=== PATIENT | female | born 1995 | race Caucasian/White ===

== ENCOUNTER → 2016-12-25 | Outpatient (CLI) | payer OTHER ==
[2016-12-25 20:14] LABS: BASO % 0.2 % (0.0-1.0); EOS # 0.2 K/mm3 (0.0-0.50); EOS % 3.5 % (0.0-3.0); LARGE UNSTAINED CELL # 0.2 K/mm3 (0.0-0.4); LARGE UNSTAINED CELL % 2.6 % (0.0-4.0); LYMPH # 1.8 K/mm3 (1.5-6.5); MEAN CORPUSCULAR HEMOGLOBIN 31.1 pg (27.0-33.0); MEAN CORPUSCULAR HGB CONC 33.5 g/dl (32.0-36.5); MEAN CORPUSCULAR VOLUME 92.8 fl (80.0-96.0); MONO # 0.5 K/mm3 (0.0-0.8); MONO % 6.7 % (0.0-5.0); NEUTROPHILS # 4.2 K/mm3 (1.8-7.7); PLATELET COUNT, AUTOMATED 263 k/mm3 (150-450); WHITE BLOOD COUNT 6.9 K/mm3 (4.0-10.0)
[2016-12-26 14:05] LABS: HIV SCRN NEGATIVE (NEGATIVE); HIV SCRN1 NEGATIVE (NEGATIVE)
[2016-12-26 14:06] LABS: CONTROL LINE INT CTR LINE PRESENT
[2016-12-27 09:48] LABS: HBsAg Prenatal NEGATIVE (NEGATIVE)
== END ==
LOC: M ADAMS 15:32
PROVIDERS: ATTEND Advanced Practice Midwife
DX: Z34.81 Encounter for supervision of other normal pregnancy, first trimester (principal)

== ENCOUNTER 2016-12-28 15:19 | Emergency (ER) | payer OTHER ==
[~2016-12-28] VITALS: Ht 162.6 cm; Wt 59.0 kg
[2016-12-28] MEDS ORDERED: MIRA33504 PO (15:26)
[2016-12-28] MEDS ORDERED: CELE20TA PO (15:26)
[2016-12-28 17:55] VITALS: BP 125/64
== END 2016-12-28 18:19 | disposition home or self-care (01) ==
LOC: M ED 18:05
DX: N93.8 Other specified abnormal uterine and vaginal bleeding (principal); R10.2 Pelvic and perineal pain; K60.2 Anal fissure, unspecified; F32.9 Major depressive disorder, single episode, unspecified; F41.9 Anxiety disorder, unspecified; Z79.899 Other long term (current) drug therapy

== ENCOUNTER → 2017-01-10 | Outpatient (CLI) | payer OTHER ==
[~2017-01-10] MED LIST: CELE20TA PO; MIRA33504 PO
== END ==
LOC: M SMT 11:26
PROVIDERS: ATTEND Advanced Practice Midwife
DX: O26.851 Spotting complicating pregnancy, first trimester (principal)

== ENCOUNTER → 2017-01-12 | Outpatient (REF) | payer OTHER | LOC: M LAB REF 12:03 | PROVIDERS: ATTEND Advanced Practice Midwife | DX: O26.851 Spotting complicating pregnancy, first trimester (principal); Z3A.00 Weeks of gestation of pregnancy not specified ==

== ENCOUNTER → 2017-03-25 | Outpatient (REF) | payer OTHER | LOC: M LAB REF 15:07 | PROVIDERS: ATTEND Physician Assistant | DX: J02.9 Acute pharyngitis, unspecified (principal) ==

== ENCOUNTER → 2017-06-13 | Outpatient (REF) | payer OTHER ==
[2017-06-13 20:37] LABS: BASO % 0.2 % (0.0-1.0); EOS # 0.1 K/mm3 (0.0-0.50); EOS % 1.5 % (0.0-3.0); LARGE UNSTAINED CELL # 0.1 K/mm3 (0.0-0.4); LARGE UNSTAINED CELL % 1.3 % (0.0-4.0); LYMPH # 1.5 K/mm3 (1.5-6.5); LYMPH % 19.6 % (24.0-44.0); MEAN CORPUSCULAR HEMOGLOBIN 31.3 pg (27.0-33.0); MEAN CORPUSCULAR HGB CONC 33.3 g/dl (32.0-36.5); MEAN CORPUSCULAR VOLUME 93.9 fl (80.0-96.0); MONO # 0.5 K/mm3 (0.0-0.8); MONO % 6.6 % (0.0-5.0); NEUTROPHILS # 5.2 K/mm3 (1.8-7.7); NEUTROPHILS % 70.8 % (36.0-66.0); PLATELET COUNT, AUTOMATED 276 k/mm3 (150-450); RED CELL DISTRIBUTION WIDTH 12.1 % (11.5-14.5); WHITE BLOOD COUNT 7.3 K/mm3 (4.0-10.0)
[2017-06-15 11:06] LABS: HBsAg Prenatal NEGATIVE (NEGATIVE)
[2017-06-18 14:11] LABS: IMMUNOGLOBULIN E, TOTAL 128 IU/mL (0-100)
== END ==
LOC: M LAB REF 08:59
PROVIDERS: ATTEND Obstetrics & Gynecology
DX: Z34.81 Encounter for supervision of other normal pregnancy, first trimester (principal)

== ENCOUNTER → 2017-09-06 | Outpatient (CLI) | payer OTHER ==
--- NOTE | 2017-09-06 17:01 | REP ---
Obstetric sonography: History: Supervision of for anatomy. Findings: Scanning through the gravid uterus demonstrates a viable single intrauterine gestation in a breech lie. motion is observed and heart rate is recorded at 168 beats per minute. An anterior grade zero placenta is seen without evidence of previa or abruption. Amniotic fluid is subjectively normal. Closed cervical length is 3.5 cm measured transabdominally . No extrauterine abnormality observed. There has been appropriate interval growth. There are small bilateral choroid plexus cyst seen. No other anomaly is seen. Four-chamber heart and left ventricular outflow tract views are less than optimally achieved due to position. The following additional anatomic structures are identified and felt to be sonographically unremarkable: cranium, cavum, cerebellum posterior fossa, face and profile, lungs, right ventricular outflow tract view, diaphragm, left-sided stomach, abdominal wall cord insertion, three-vessel umbilical cord, kidneys and bladder, spine, upper and lower extremities. Biometry chart: BPD 4.2 cm = 18 weeks 6 days Head circumference 15.3 cm = 18 weeks 2 days Abdominal circumference 13.2 cm = 18 weeks 5 days Femur length 3.1 cm = 19 weeks 4 days Humeral length 2.7 cm = 18 weeks 4 days Cerebellar diameter 1.9 cm = 18 weeks 4 days HC/AC ratio normal 1.16, cephalic index normal 0.78, estimated weight 271 grams 0 pounds 9 ounces 52nd percentile for 18 weeks 6 days. Impression: Viable single intrauterine gestation at 18 weeks 5 days by today's composite sonographic criteria. HEATHER by today's sonography February 02, 2018. Four-chamber heart and left ventricular outflow tract views less than optimally achieved. Small bilateral choroid plexus cysts noted. Signed by Ronald Bowie MD 09/06/2017 05:29 P
== END ==
LOC: M RAD 13:15
PROVIDERS: ATTEND Obstetrics & Gynecology
DX: Z36.2 Encounter for other antenatal screening follow-up (principal)

== ENCOUNTER → 2017-09-25 | Outpatient (CLI) | payer OTHER ==
--- NOTE | 2017-09-25 16:29 | REP ---
Clinical: Anatomical evaluation. Comparison: 09/06/2017 . Findings: Examination demonstrates a single live intrauterine in cephalic presentation. motion is identified by technologist. Placenta is noted anteriorly and grade zero without evidence for placenta previa or abruption. Amniotic fluid volume is normal. Cervix measures 3.9 cm in length and appears closed. No evidence for nuchal cord. Gestational age by LMP 21 weeks 4 days with HEATHER 02/01/2018 . Gestational age by current measurements 21 weeks 1 day with HEATHER 02/04/2018 . FHR equals 133 beats per minute. Estimated weight 408 grams ( 34th percentile). Anatomical assessment demonstrates normal structures including cranium, choroid plexus, cavum, cerebellum/posterior fossa, facial features, lungs, four-chamber heart/ventricular outflow tracts, diaphragm, stomach, cord insertion/three-vessel cord, kidneys/bladder, spine, and extremities. Impression: Single live intrauterine in cephalic presentation demonstrating appropriate interval growth. In conjunction with prior examination anatomical assessment is complete and normal. Signed by Gio Jimenez MD 09/25/2017 04:21 P
== END ==
LOC: M RAD 14:19
PROVIDERS: ATTEND Obstetrics & Gynecology
DX: Z34.80 Encounter for supervision of other normal pregnancy, unspecified trimester (principal)

== ENCOUNTER → 2017-11-21 | Outpatient (CLI) | payer OTHER ==
[2017-11-21 14:38] LABS: BASO % 0.3 % (0.0-1.0); EOS # 0.1 10^3/uL (0.0-0.50); HEMATOCRIT 33.9 % (36.0-47.0); HEMOGLOBIN 11.1 g/dl (12.0-16.0); IMMATURE GRANULOCYTE # 0.1 10^3/uL (0-0); IMMATURE GRANULOCYTE % 0.5 % (0-0); LYMPH # 1.4 10^3/uL (1.5-6.5); LYMPH % 11.9 % (24.0-44.0); MEAN CORPUSCULAR HGB CONC 32.7 g/dl (32.0-36.5); MEAN CORPUSCULAR VOLUME 94.7 fl (80.0-96.0); MONO # 0.8 10^3/uL (0.0-0.8); MONO % 6.6 % (0.0-5.0); NEUTROPHILS # 9.4 10^3/uL (1.8-7.7); NEUTROPHILS % 79.7 % (36.0-66.0); PLATELET COUNT, AUTOMATED 274 10^3/uL (150-450); RED BLOOD COUNT 3.58 10^6/uL (4.00-5.40); RED CELL DISTRIBUTION WIDTH 12.5 % (11.5-14.5); WHITE BLOOD COUNT 11.7 10^3/uL (4.0-10.0)
[2017-11-21 14:40] LABS: GLUCOSE CHALLENGE TEST 1 HOUR 97 MG/DL (LESS THAN 140)
== END ==
LOC: M SMT 08:57
DX: Z34.83 Encounter for supervision of other normal pregnancy, third trimester (principal)
CPT/HCPCS: 82950

== ENCOUNTER 2017-12-10 23:00 | Outpatient (CLI) | payer OTHER | END 2017-12-10 23:50 | disposition home or self-care (01) | LOC: M LDO 23:00 | DX: O36.8130 Decreased fetal movements, third trimester, not applicable or unspecified (principal); Z3A.32 32 weeks gestation of pregnancy ==

== ENCOUNTER → 2018-01-02 | Outpatient (REF) | payer OTHER | LOC: M LAB REF 17:11 | DX: Z34.83 Encounter for supervision of other normal pregnancy, third trimester (principal) ==

== ENCOUNTER 2018-01-04 11:08 | Outpatient (CLI) | payer OTHER | END 2018-01-04 13:55 | disposition home or self-care (01) | LOC: M LDO 11:08 | DX: O47.03 False labor before 37 completed weeks of gestation, third trimester (principal); Z3A.36 36 weeks gestation of pregnancy ==

== ENCOUNTER 2018-01-05 20:20 | Outpatient (CLI) | payer OTHER | END 2018-01-05 21:10 | disposition home or self-care (01) | LOC: M LDO 20:20 | DX: O47.03 False labor before 37 completed weeks of gestation, third trimester (principal); Z3A.36 36 weeks gestation of pregnancy; M54.5 Low back pain; O26.893 Other specified pregnancy related conditions, third trimester ==

== ENCOUNTER 2018-01-20 12:00 | Inpatient (IN) | payer OTHER ==
[2018-01-20 13:24] LABS: HEMATOCRIT 32.9 % (36.0-47.0); HEMOGLOBIN 10.9 g/dl (12.0-16.0); MEAN CORPUSCULAR HEMOGLOBIN 30.4 pg (27.0-33.0); MEAN CORPUSCULAR HGB CONC 33.1 g/dl (32.0-36.5); MEAN CORPUSCULAR VOLUME 91.6 fl (80.0-96.0); PLATELET COUNT, AUTOMATED 259 10^3/uL (150-450); RED BLOOD COUNT 3.59 10^6/uL (4.00-5.40); RED CELL DISTRIBUTION WIDTH 13.2 % (11.5-14.5); WHITE BLOOD COUNT 11.1 10^3/uL (4.0-10.0)
[2018-01-20 13:41] LABS: ALT/SGPT 12 U/L (12-78); AST/SGOT 16 U/L (7-37); BILIRUBIN,TOTAL 0.3 MG/DL (0.2-1.0); CREATININE FOR GFR 0.49 MG/DL (0.55-1.30); GLOMERULAR FILTRATION RATE > 60.0 (>60); LDH LACTATE DEHYDROGENASE 183 U/L (84-246); URIC ACID 4.3 MG/DL (2.6-6.0)
[2018-01-20] MEDS: miSOPROStol 50 MCG 1/2 TAB (S0191) PO (15:45)
[2018-01-20] MEDS ORDERED: miSOPROStol 50 MCG 1/2 TAB (S0191) PO (19:00)
[2018-01-20] MEDS: PROMETHAZINE INJ 25 MG/ML VIAL (J2550) IV (19:51)
[2018-01-20] MEDS: BUTORPHANOL 2 MG/ML INJ (J0595) IV (19:51)
[2018-01-20] MEDS: LR 1,000 ML IV (20:20)
[2018-01-20] MEDS: OXYTOCIN DRIP 30 UNITS in APPROPRIATE DILUENT 1 EA IV (20:20)
[2018-01-20] MEDS: LACTATED RINGER'S 1000 ML IV (21:32)
[2018-01-20] MEDS ORDERED: FENTANYL 2MCG/ML ROPIVACAINE 0.2% IN 0.9% NACL 200ML IVBAG As Ordered (21:48)
[2018-01-20] MEDS ORDERED: EPIDURAL COMMENT XX (22:55)
[2018-01-20] MEDS ORDERED: EPIDURAL/PCA KEYS XX (22:55)
[2018-01-20] MEDS ORDERED: FENTANYL/ROPIVACAINE/NACL BAG 200 ML EPIDURAL (22:55)
[2018-01-20] MEDS ORDERED: ONDANSETRON 4MG/2ML VIAL (J2405) IV (22:55)
[2018-01-20] MEDS ORDERED: diphenhydrAMINE INJ 50MG/ML VIAL (J1200) IV (22:55)
[2018-01-20] MEDS ORDERED: NALOXONE INJ 0.4 MG/1 ML VIAL (J2310) IV (22:55)
[2018-01-20] MEDS ORDERED: LACTATED RINGER'S 1000 ML IV (22:55)
[2018-01-20] MEDS ORDERED: REFRIGERATOR IV KEYS XX (22:55)
[2018-01-21] MEDS: ePHEDrine SULFATE 25 MG/5 ML(5MG/ML) SYRINGE IV (00:16)
[2018-01-21] MEDS: LR 1,000 ML IV (04:30)
[2018-01-21] MEDS: ACETAMINOPHEN 500 MG TAB PO ×3 (04:30→22:59)
[2018-01-21] MEDS ORDERED: BICITRA 30ML SOLN UDC As Ordered (06:37)
[2018-01-21] MEDS ORDERED: ceFAZolin 2 GM/D5W 50 ML IV BAG (J0690 PER 500MG) As Ordered (06:37)
[2018-01-21] MEDS ORDERED: METHYLERGONOVINE MALEATE 0.2 MG TAB PO (07:30)
[2018-01-21 08:08] LABS: CORD GAS ABE V -8.8; CORD GAS HCO3 V 19.8 MEQ/L; CORD GAS O2 SAT V 44.2 %; CORD GAS PCO2 V 52.3 mmHg; CORD GAS PH V 7.196 UNITS; CORD GAS PO2 V 23.7 mmHg; CORD GAS SBC V 16.4 MEQ/L; CORD GAS TCO2 V 21.4 MEQ/L
[2018-01-21 08:10] LABS: CORD GAS ABE A -8.7; CORD GAS HCO3 A 20.3 MEQ/L; CORD GAS O2 SAT A 17.4 %; CORD GAS PCO2 A 55.2 mmHg; CORD GAS PH A 7.183 UNITS; CORD GAS PO2 A 12.8 mmHg; CORD GAS SBC A 15.8 MEQ/L
[2018-01-21] MEDS: BICITRA 30ML SOLN UDC PO (08:46)
[2018-01-21] MEDS: OXYTOCIN DRIP 30 UNITS in APPROPRIATE DILUENT 1 EA IV (08:47)
[2018-01-21] MEDS: PRENATAL VITAMINS CHEWABLE TABLET PO (09:00)
[2018-01-21] MEDS: IBUPROFEN 800 MG TAB PO ×2 (14:09→22:59)
[2018-01-21] MEDS: DIBUCAINE 1% OINTMENT 30GM TOP (22:50)
[2018-01-21] MEDS: RHOGAM 300 MCG (1500 IU) INJ (J2790) IM (22:51)
[2018-01-21] MEDS: MEASLES,MUMPS,RUBELLA VACCINE INJ (MMR-II) (90707) SC (22:51)
[2018-01-22] MEDS: PRENATAL VITAMINS CHEWABLE TABLET PO (08:35)
[2018-01-22] MEDS: IBUPROFEN 800 MG TAB PO ×2 (08:36→19:34)
[2018-01-22] MEDS: DOCUSATE SODIUM 100 MG CAP PO (08:36)
[2018-01-22] MEDS: ACETAMINOPHEN 500 MG TAB PO (15:32)
[2018-01-23] MEDS: IBUPROFEN 800 MG TAB PO (04:42)
[2018-01-23] MEDS: ACETAMINOPHEN 500 MG TAB PO (04:42)
[2018-01-23] MEDS: PRENATAL VITAMINS CHEWABLE TABLET PO (09:51)
== END 2018-01-23 10:30 | disposition home or self-care (01) | DRG 560 ==
LOC: M LDO 12:00 → M LDI 12:40 → M OBS 01-21 09:38
PROC: 10E0XZZ Delivery of Products of Conception, External Approach (ICD-10-PCS; principal; 2018-01-21)
PROC: 0HQ9XZZ Repair Perineum Skin, External Approach (ICD-10-PCS; 2018-01-21)
DX: O76 Abnormality in fetal heart rate and rhythm complicating labor and delivery (principal); O70.0 First degree perineal laceration during delivery; Z37.0 Single live birth; Z3A.38 38 weeks gestation of pregnancy; Z91.040 Latex allergy status

== ENCOUNTER → 2019-01-23 | Outpatient (REF) | payer MEDICAID ==
[~2019-01-23] MED LIST changes: +IBUP-1114 PO; +MAPA500T2 PO; +PRENTAB9 PO; +TUMS500C PO
[2019-01-29 14:25] LABS: HPV HYBRID CAPTURE II Positive (Negative)
== END ==
LOC: M LAB REF 13:16
PROVIDERS: ATTEND Advanced Practice Midwife
DX: Z12.4 Encounter for screening for malignant neoplasm of cervix (principal)

== ENCOUNTER → 2019-03-27 | Outpatient (REF) | payer OTHER | LOC: M LAB REF 16:59 | PROVIDERS: ATTEND Specialist | DX: R87.610 Atypical squamous cells of undetermined significance on cytologic smear of cervix (ASC-US) (principal) ==

== ENCOUNTER 2019-07-10 16:54 | Emergency (ER) | payer OTHER ==
[~2019-07-10] VITALS: Ht 160 cm; Wt 88.6 kg
[2019-07-10 17:27] LABS: BASO % 0.2 % (0.0-1.0); EOS # 0.5 10^3/uL (0.0-0.5); EOS % 4.1 % (0.0-3.0); HEMATOCRIT 38.7 % (36.0-47.0); HEMOGLOBIN 13.1 g/dl (12.0-15.5); LYMPH # 1.2 10^3/uL (1.5-5.0); LYMPH % 10.5 % (24.0-44.0); MEAN CORPUSCULAR HEMOGLOBIN 31.3 pg (27.0-33.0); MEAN CORPUSCULAR HGB CONC 33.9 g/dl (32.0-36.5); MEAN CORPUSCULAR VOLUME 92.6 fl (80.0-96.0); MONO # 0.7 10^3/uL (0.0-0.8); MONO % 6.7 % (0.0-5.0); NEUTROPHILS # 8.7 10^3/uL (1.5-8.5); NEUTROPHILS % 78.2 % (36.0-66.0); PLATELET COUNT, AUTOMATED 264 10^3/uL (150-450); RED BLOOD COUNT 4.18 10^6/uL (4.00-5.40); WHITE BLOOD COUNT 11.1 10^3/uL (4.0-10.0)
[2019-07-10 17:51] LABS: BLOOD UREA NITROGEN 9 MG/DL (7-18); CALCIUM LEVEL 9.2 MG/DL (8.5-10.1); CARBON DIOXIDE LEVEL 24 MEQ/L (21-32); CHLORIDE LEVEL 105 MEQ/L (98-107); CREATININE FOR GFR 0.56 MG/DL (0.55-1.30); GLOMERULAR FILTRATION RATE > 60.0 (>60); GLUCOSE, FASTING 91 MG/DL (70-100); SODIUM LEVEL 137 MEQ/L (136-145)
[2019-07-10] MEDS ORDERED: ACETAMINOPHEN 325 MG TAB PO ONE (19:15)
[2019-07-10] MEDS ORDERED: ONDANSETRON 4 MG ORAL DISINTEGRATING TAB (Q0162 PER 1MG) PO ONE (19:15)
--- NOTE | 2019-07-10 22:09 | REPVR ---
EXAM: US First Trimester, Transabdominal EXAM DATE/TIME: 07/10/2019 9:04 PM CLINICAL HISTORY: 23 years old, female; complicated by abdominal or pelvic pain; Lower; First trimester; Gestational age or lmp: 8 weeks 0 days; ; Additional info: Vag bleeding, cramping, 8wks by dates TECHNIQUE: Imaging protocol: Real-time transabdominal obstetrical ultrasound of the maternal pelvis and a first trimester , less than 14 weeks 0 days, with image documentation. COMPARISON: US OBS FOLL UP OR REPEAT EACH GES 09/25/2017 2:31 PM FINDINGS: There is a single intrauterine gestation. The embryonic heart rate was measured at 125 beats per minute. The crown-rump length is 5 cm, corresponding to an estimated gestational age of 6 weeks, 2 days. The estimated gestational age based on the last menstrual period (05/15/2019) is 8 weeks, 0 days. The sonographic estimated date of delivery is 03/02/2020. Both maternal ovaries are identified and demonstrate blood flow on Doppler interrogation. The right ovary measures 3.6 x 2.1 x 2 cm and the left ovary measures 3.5 x 2.1 x 2.8 cm. There is a 2.3 x 1.7 x 1.9 cm complex cystic lesion in the left ovary, compatible with a corpus luteum. There is no adnexal mass. No free fluid is seen in the pelvis. IMPRESSION: Single viable intrauterine gestation with an estimated gestational age of 6 weeks, 2 days. Recommend continued clinical and ultrasound surveillance, as clinically indicated. Electronically signed by: Bear Anders On 07/10/2019 22:09:13 PM
[2019-07-10] MEDS ORDERED: ONDA4TAB6 PO (22:17)
[2019-07-10 22:23] VITALS: BP 118/65
== END 2019-07-10 22:24 | disposition home or self-care (01) ==
LOC: M ED 16:54
DX: O20.8 Other hemorrhage in early pregnancy (principal); O26.891 Other specified pregnancy related conditions, first trimester; Z3A.01 Less than 8 weeks gestation of pregnancy; O99.511 Diseases of the respiratory system complicating pregnancy, first trimester; Z91.040 Latex allergy status
CPT/HCPCS: 76801; 80048; 81001; 84702; 85025; 86850; 86900; 86901; 93976; 99283; Q0162

== ENCOUNTER 2019-07-11 10:49 | Emergency (ER) | payer OTHER ==
[~2019-07-11] VITALS: Ht 160 cm; Wt 88.5 kg
[~2019-07-11 10:49] MED LIST changes: +ONDA4TAB6 PO
[2019-07-11 11:37] LABS: BASO % 0.4 % (0.0-1.0); EOS # 0.4 10^3/uL (0.0-0.5); EOS % 5.3 % (0.0-3.0); HEMATOCRIT 37.4 % (36.0-47.0); HEMOGLOBIN 12.5 g/dl (12.0-15.5); LYMPH # 1.1 10^3/uL (1.5-5.0); LYMPH % 15.8 % (24.0-44.0); MEAN CORPUSCULAR HEMOGLOBIN 30.3 pg (27.0-33.0); MEAN CORPUSCULAR HGB CONC 33.4 g/dl (32.0-36.5); MEAN CORPUSCULAR VOLUME 90.8 fl (80.0-96.0); MONO # 0.5 10^3/uL (0.0-0.8); MONO % 7.3 % (0.0-5.0); NEUTROPHILS # 5.1 10^3/uL (1.5-8.5); NEUTROPHILS % 71.1 % (36.0-66.0); PLATELET COUNT, AUTOMATED 263 10^3/uL (150-450); RED BLOOD COUNT 4.12 10^6/uL (4.00-5.40); WHITE BLOOD COUNT 7.2 10^3/uL (4.0-10.0)
[2019-07-11 12:38] LABS: BLOOD UREA NITROGEN 8 MG/DL (7-18); CALCIUM LEVEL 9.1 MG/DL (8.5-10.1); CARBON DIOXIDE LEVEL 23 MEQ/L (21-32); CHLORIDE LEVEL 106 MEQ/L (98-107); GLOMERULAR FILTRATION RATE > 60.0 (>60); GLUCOSE, FASTING 103 MG/DL (70-100); HCG, SERUM QUANTITATIVE 13997 MIU/ML; POTASSIUM SERUM 3.5 MEQ/L (3.5-5.1); SODIUM LEVEL 138 MEQ/L (136-145)
[2019-07-11] MEDS ORDERED: ACETAMINOPHEN TAB 650MG DOSE (2X325MG) PO ONE (13:00)
--- NOTE | 2019-07-11 14:04 | REP ---
FIRST TRIMESTER ULTRASOUND: Real-time sonographic evaluation of the gravid uterus is performed utilizing transabdominal technique. There is a single intrauterine gestation with an estimated gestational age 6 weeks 2 days based on a crown-rump length of 6 mm, EDC 03/03/2020. heart rate is 122 beats per minute. There is a subchorionic hemorrhage visualized, measuring 25 x 8 x 19 mm. Cystic structure of the left ovary probably represents a corpus luteum 1.5 cm in diameter. Electronically Signed by Gadiel Booker MD 07/11/2019 03:18 P
[2019-07-11 14:20] VITALS: BP 119/58
== END 2019-07-11 15:45 | disposition home or self-care (01) ==
LOC: M ED 10:49
DX: O20.0 Threatened abortion (principal); O26.891 Other specified pregnancy related conditions, first trimester; O34.81 Maternal care for other abnormalities of pelvic organs, first trimester; O20.8 Other hemorrhage in early pregnancy; O99.511 Diseases of the respiratory system complicating pregnancy, first trimester; O99.341 Other mental disorders complicating pregnancy, first trimester; Z3A.01 Less than 8 weeks gestation of pregnancy; Z79.899 Other long term (current) drug therapy; Z91.040 Latex allergy status

== ENCOUNTER → 2020-11-15 | Outpatient (CLI) | payer OTHER | LOC: M LABSMTC 12:45 | PROVIDERS: ATTEND Family Medicine | DX: Z20.822 Contact with and (suspected) exposure to COVID-19 (principal) ==

== ENCOUNTER → 2020-12-07 | Outpatient (REF) | payer OTHER ==
[2020-12-07 16:38] LABS: BASO % 0.4 % (0.0-1.0); EOS # 0.1 10^3/uL (0.0-0.5); EOS % 1.7 % (0.0-3.0); HEMATOCRIT 42.3 % (36.0-47.0); HEMOGLOBIN 13.7 g/dl (12.0-15.5); LYMPH # 2.3 10^3/uL (1.5-5.0); LYMPH % 30.3 % (24.0-44.0); MEAN CORPUSCULAR HEMOGLOBIN 30.3 pg (27.0-33.0); MEAN CORPUSCULAR HGB CONC 32.4 g/dl (32.0-36.5); MEAN CORPUSCULAR VOLUME 93.6 fl (80.0-96.0); MONO # 0.7 10^3/uL (0.0-0.8); MONO % 8.7 % (0.0-5.0); NEUTROPHILS # 4.5 10^3/uL (1.5-8.5); NEUTROPHILS % 58.6 % (36.0-66.0); PLATELET COUNT, AUTOMATED 324 10^3/uL (150-450); RED BLOOD COUNT 4.52 10^6/uL (4.00-5.40); WHITE BLOOD COUNT 7.6 10^3/uL (4.0-10.0)
[2020-12-07 17:06] LABS: ALT/SGPT 21 U/L (12-78); BILIRUBIN,TOTAL 0.3 MG/DL (0.2-1.0); BLOOD UREA NITROGEN 12 MG/DL (7-18); CARBON DIOXIDE LEVEL 30 MEQ/L (21-32); CHLORIDE LEVEL 106 MEQ/L (98-107); FREE T4 0.88 NG/DL (0.76-1.46); GLOMERULAR FILTRATION RATE > 60.0 (>60); GLUCOSE, FASTING 83 MG/DL (70-100); POTASSIUM SERUM 4.1 MEQ/L (3.5-5.1); SODIUM LEVEL 141 MEQ/L (136-145); THYROID STIMULATING HORMONE 0.958 uIU/ML (0.358-3.740); TOTAL PROTEIN 7.7 GM/DL (6.4-8.2); VITAMIN B12 LEVEL 493 PG/ML
== END ==
LOC: M SFHCADAM 13:50
PROVIDERS: ATTEND Physician Assistant
DX: G43.019 Migraine without aura, intractable, without status migrainosus (principal)

== ENCOUNTER → 2021-01-21 | Outpatient (CLI) | payer OTHER ==
--- NOTE | 2021-01-21 16:15 | REPVR ---
PROCEDURE INFORMATION: Exam: MR Head Without and With Contrast Exam date and time: 01/21/2021 2:48 PM Age: 25 years old Clinical indication: Pain; Headache; Without aura; Does respond to medication; With migrainosus (>72 hrs & severe); Patient HX: Vertigo, migraine TECHNIQUE: Imaging protocol: MR of the head without and with intravenous contrast. Contrast material: PROHANCE; Contrast volume: 18 ml; Contrast route: INTRAVENOUS (IV); COMPARISON: CT Head without contrast 02/01/2016 7:10 PM FINDINGS: Brain: No acute infarct identified on the diffusion-weighted imaging. No evidence of recent parenchymal hemorrhage. There is a focus of left frontal lobe parenchymal blooming probably related to an underlying cavernous malformation (approximate 7 mm area of correlative T2 signal heterogeneity with some stippled enhancement on the postcontrast imaging and small adjacent developmental venous anomaly, image 3 series 10). No evidence of perifocal edema in this region. No significant white matter disease. Cerebral ventricles: Normal. No ventriculomegaly. Bones/joints: Unremarkable. Paranasal sinuses: Trace ethmoid mucosal thickening. Mastoid air cells: Normal as visualized. No mastoid effusion. Orbital cavity: Unremarkable. Soft tissues: Unremarkable. IMPRESSION: 1. No acute intracranial abnormality. 2. 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 Electronically signed by: Ami Evans On 01/21/2021 16:15:36 PM
== END ==
LOC: M PLARAD 14:10
PROVIDERS: ATTEND Physician Assistant
DX: G43.019 Migraine without aura, intractable, without status migrainosus (principal); R42 Dizziness and giddiness

== ENCOUNTER → 2021-02-09 | Outpatient (CLI) | payer OTHER ==
--- NOTE | 2021-02-09 08:49 | REP ---
INDICATION: IMPINGEMENT SYNDROME OF RIGHT SHOULDER COMPARISON: None. TECHNIQUE: Internal rotation, external rotation, and Y view. FINDINGS: No acute fracture or dislocation. The acromioclavicular and glenohumeral joints are intact. No periarticular calcifications or degenerative changes are appreciated. Sub acromial space is normal. Surrounding soft tissues are unremarkable. IMPRESSION: Normal age-appropriate right shoulder radiographs. <Electronically signed by Gio Jimenez > 02/09/21 [id number]
== END ==
LOC: M ADAMS 08:28
PROVIDERS: ATTEND Physician Assistant
DX: M75.41 Impingement syndrome of right shoulder (principal)

== ENCOUNTER → 2021-06-28 | Outpatient (REF) | payer OTHER ==
[2021-06-28 19:46] LABS: BASO % 0.3 % (0.0-1.0); EOS # 0.2 10^3/uL (0.0-0.5); EOS % 2.9 % (0.0-3.0); HEMATOCRIT 39.5 % (36.0-47.0); HEMOGLOBIN 12.6 g/dl (12.0-15.5); LYMPH # 2.3 10^3/uL (1.5-5.0); LYMPH % 29.6 % (24.0-44.0); MEAN CORPUSCULAR HEMOGLOBIN 30.7 pg (27.0-33.0); MEAN CORPUSCULAR HGB CONC 31.9 g/dl (32.0-36.5); MEAN CORPUSCULAR VOLUME 96.3 fl (80.0-96.0); MONO # 0.6 10^3/uL (0.0-0.8); MONO % 8.1 % (2.0-8.0); NEUTROPHILS # 4.5 10^3/uL (1.5-8.5); NEUTROPHILS % 58.8 % (36.0-66.0); PLATELET COUNT, AUTOMATED 295 10^3/uL (150-450); WHITE BLOOD COUNT 7.7 10^3/uL (4.0-10.0)
[2021-06-28 20:16] LABS: ERYTHROCYTE SEDIMENTATION RATE 23 mm/hr (0-20)
[2021-06-28 20:20] LABS: ALBUMIN 3.6 GM/DL (3.2-5.2); ALT/SGPT 21 U/L (12-78); BILIRUBIN,TOTAL 0.2 MG/DL (0.2-1.0); BLOOD UREA NITROGEN 8 MG/DL (7-18); CALCIUM LEVEL 9.1 MG/DL (8.5-10.1); CARBON DIOXIDE LEVEL 24 MEQ/L (21-32); CHLORIDE LEVEL 114 MEQ/L (98-107); CREATININE FOR GFR 0.76 MG/DL (0.55-1.30); GLOMERULAR FILTRATION RATE > 60.0 (>60); GLUCOSE, FASTING 83 MG/DL (70-100); POTASSIUM SERUM 4.1 MEQ/L (3.5-5.1); RHEUMATOID FACTOR QUANT < 10.0 IU/ML (<15.0); SODIUM LEVEL 144 MEQ/L (136-145); THYROID STIMULATING HORMONE 0.652 uIU/ML (0.358-3.740); TOTAL PROTEIN 7.1 GM/DL (6.4-8.2)
== END ==
LOC: M LABDRWAD 18:26
PROVIDERS: ATTEND Psychiatry & Neurology Neurology
DX: R51.9 Headache, unspecified (principal)

== ENCOUNTER 2021-07-30 12:43 | Emergency (ER) | payer OTHER ==
[~2021-07-30] VITALS: Ht 160 cm; Wt 81.8 kg
[2021-07-30] MEDS ORDERED: diphenhydrAMINE 50MG/ML VIAL (J1200) IV ONE (12:55)
[2021-07-30] MEDS ORDERED: PROCHLORPERAZINE 10MG/2ML VIAL (J0780 PER 1) IV ONE (12:55)
[2021-07-30] MEDS ORDERED: CITA20TA7 (13:00)
[2021-07-30] MEDS ORDERED: TOPI25TA10 (13:00)
[2021-07-30 15:00] VITALS: BP 127/81
== END 2021-07-30 15:06 | disposition home or self-care (01) ==
LOC: EDBD 12:43 → M ED 12:43
DX: R51.9 Headache, unspecified (principal); J30.81 Allergic rhinitis due to animal (cat) (dog) hair and dander; J30.89 Other allergic rhinitis; Z91.040 Latex allergy status
CPT/HCPCS: 96374; 96375; 99284; J0780; J1200

== ENCOUNTER → 2021-08-16 | Outpatient (REF) | payer OTHER ==
[~2021-08-16] MED LIST changes: +CITA20TA7; +TOPI25TA10
[2021-08-16 13:10] LABS: APPEARANCE, URINE CLEAR (CLEAR); BACTERIA, URINE AUTO 1+ (NEGATIVE); BILIRUBIN, URINE AUTO NEGATIVE (NEGATIVE); BLOOD, URINE BLOOD NEGATIVE (NEGATIVE); COLOR, URINE STRAW (YELLOW); GLUCOSE, URINE (UA) AUTO NEGATIVE (NEGATIVE); KETONE, URINE AUTO NEGATIVE (NEGATIVE); LEUKOCYTE ESTERASE, URINE AUTO 2+ (NEGATIVE); NITRITE, URINE AUTO NEGATIVE (NEGATIVE); PROTEIN, URINE AUTO NEGATIVE (NEGATIVE); RBC, URINE AUTO 1 /HPF (0-3); SPECIFIC GRAVITY URINE AUTO 1.004 (1.002-1.035); SQUAMOUS EPITHELIAL CELL UR AU 2 /HPF (0-6); UROBILINOGEN, URINE AUTO 0.2 mg/dL (0.0-2.0); WBC, URINE AUTO 8 /HPF (0-3)
== END ==
LOC: M SFHCADAM 10:40
PROVIDERS: ATTEND Physician Assistant Medical
DX: R35.0 Frequency of micturition (principal)

== ENCOUNTER 2021-09-20 13:52 | Emergency (ER) | payer OTHER ==
[~2021-09-20] VITALS: Ht 160 cm; Wt 82.2 kg
[2021-09-20] MEDS ORDERED: ECOT81TA5 PO (14:08)
[2021-09-20] MEDS ORDERED: TOPI100T9 (14:08)
[2021-09-20] MEDS ORDERED: METOCLOPRAMIDE INJ 10MG/2ML VIAL (J2765 PER 1) IV ONE (14:55)
[2021-09-20] MEDS ORDERED: NS 1,000 ML IV ONE (14:55)
[2021-09-20 15:17] LABS: BASO % 0.2 % (0.0-1.0); EOS # 0.2 10^3/uL (0.0-0.5); EOS % 1.5 % (0.0-3.0); HEMATOCRIT 39.2 % (36.0-47.0); LYMPH # 2.4 10^3/uL (1.5-5.0); LYMPH % 22.6 % (24.0-44.0); MEAN CORPUSCULAR HEMOGLOBIN 30.6 pg (27.0-33.0); MEAN CORPUSCULAR HGB CONC 33.2 g/dl (32.0-36.5); MEAN CORPUSCULAR VOLUME 92.2 fl (80.0-96.0); MONO # 0.6 10^3/uL (0.0-0.8); NEUTROPHILS # 7.3 10^3/uL (1.5-8.5); NEUTROPHILS % 69.5 % (36.0-66.0); PLATELET COUNT, AUTOMATED 237 10^3/uL (150-450); RED BLOOD COUNT 4.25 10^6/uL (4.00-5.40); WHITE BLOOD COUNT 10.5 10^3/uL (4.0-10.0)
[2021-09-20 15:47] LABS: BLOOD UREA NITROGEN 10 MG/DL (7-18); CALCIUM LEVEL 9.3 MG/DL (8.5-10.1); CARBON DIOXIDE LEVEL 20 MEQ/L (21-32); CHLORIDE LEVEL 112 MEQ/L (98-107); CREATININE FOR GFR 0.65 MG/DL (0.55-1.30); GLOMERULAR FILTRATION RATE > 60.0 (>60); GLUCOSE, FASTING 93 MG/DL (70-100); POTASSIUM SERUM 3.6 MEQ/L (3.5-5.1); SODIUM LEVEL 140 MEQ/L (136-145)
--- NOTE | 2021-09-20 15:50 | REP ---
INDICATION: headache blurred vision COMPARISON: 02/01/2016 TECHNIQUE: Axial noncontrast images from the skull base to the vertex with coronal reformations. This CT examination was performed using the following dose reduction techniques: Automated exposure control, adjustment of mA and/or kv according to the patient's size, and use of iterative reconstruction technique. FINDINGS: The ventricles, sulci, and cisterns are normal in position and appearance. Booker-white differentiation is maintained. No acute intracranial hemorrhage, mass/mass effect, pathology or trauma/injury. No evidence for acute infarction. No extra-axial fluid collection. Calvarium is intact. Paranasal sinuses and mastoid air cells are clear. IMPRESSION: Normal noncontrast head CT. No evidence for acute intracranial pathology or trauma/injury. <Electronically signed by Gio Jimenez > 09/20/21 [id number]
[2021-09-20 16:41] VITALS: BP 104/54
== END 2021-09-20 17:07 | disposition home or self-care (01) ==
LOC: M ED 13:52
DX: R51.9 Headache, unspecified (principal); F41.9 Anxiety disorder, unspecified; F32.9 Major depressive disorder, single episode, unspecified; G40.909 Epilepsy, unspecified, not intractable, without status epilepticus; Z79.899 Other long term (current) drug therapy; J30.89 Other allergic rhinitis; J30.81 Allergic rhinitis due to animal (cat) (dog) hair and dander; Z91.040 Latex allergy status
CPT/HCPCS: 70450; 80048; 85025; 93041; 94760; 96361; 96374; 99284; J2765

== ENCOUNTER → 2021-10-25 | Outpatient (CLI) | payer OTHER ==
[~2021-10-25] MED LIST changes: +ECOT81TA5 PO; +ISOVUE-370 76% 100ML VIAL As Ordered ONE; +TOPI100T9
== END ==
LOC: M RAD 12:58
PROVIDERS: ATTEND Neurological Surgery
DX: I66.9 Occlusion and stenosis of unspecified cerebral artery (principal)
CPT/HCPCS: 70496; Q9967

== ENCOUNTER → 2021-11-28 | Outpatient (REF) | payer OTHER ==
[~2021-11-28] MED LIST changes: -ISOVUE-370 76% 100ML VIAL As Ordered ONE
== END ==
LOC: M SFHCWAGY 12:40
PROVIDERS: ATTEND Specialist
DX: Z12.4 Encounter for screening for malignant neoplasm of cervix (principal)

== ENCOUNTER → 2021-11-29 | Outpatient (CLI) | payer OTHER | LOC: M WHC 08:07 | PROVIDERS: ATTEND Specialist | DX: R10.2 Pelvic and perineal pain (principal); N84.0 Polyp of corpus uteri ==

== ENCOUNTER 2022-03-24 16:22 | Emergency (ER) | payer OTHER ==
[~2022-03-24] VITALS: Ht 160 cm; Wt 70.9 kg
[2022-03-24 16:23] VITALS: BP 117/71
== END 2022-03-24 20:19 | disposition home or self-care (01) ==
LOC: M ED 16:22
DX: R51.9 Headache, unspecified (principal); Q28.3 Other malformations of cerebral vessels; R42 Dizziness and giddiness; Z79.82 Long term (current) use of aspirin; Z79.899 Other long term (current) drug therapy; Z91.048 Other nonmedicinal substance allergy status; Z91.040 Latex allergy status; Z86.69 Personal history of other diseases of the nervous system and sense organs; Z98.890 Other specified postprocedural states

== ENCOUNTER 2022-03-29 15:48 | Emergency (ER) | payer OTHER ==
[~2022-03-29] VITALS: Ht 157.5 cm; Wt 71.0 kg
[2022-03-29] MEDS ORDERED: diphenhydrAMINE 50MG/ML VIAL (J1200) IV STA (16:34)
[2022-03-29] MEDS ORDERED: NS 1,000 ML IV ONE (16:35)
[2022-03-29] MEDS ORDERED: METOCLOPRAMIDE INJ 10MG/2ML VIAL (J2765 PER 1) IV ONE (16:35)
[2022-03-29 17:10] LABS: BASO % 0.3 % (0.0-1.0); EOS # 0.3 10^3/uL (0.0-0.5); EOS % 3.3 % (0.0-3.0); HEMATOCRIT 38.1 % (36.0-47.0); HEMOGLOBIN 12.7 g/dl (12.0-15.5); LYMPH # 2.5 10^3/uL (1.5-5.0); MEAN CORPUSCULAR HEMOGLOBIN 31.6 pg (27.0-33.0); MEAN CORPUSCULAR HGB CONC 33.3 g/dl (32.0-36.5); MEAN CORPUSCULAR VOLUME 94.8 fl (80.0-96.0); MONO # 0.6 10^3/uL (0.0-0.8); MONO % 6.7 % (2.0-8.0); NEUTROPHILS # 5.7 10^3/uL (1.5-8.5); NEUTROPHILS % 62.3 % (36.0-66.0); PLATELET COUNT, AUTOMATED 261 10^3/uL (150-450); RED BLOOD COUNT 4.02 10^6/uL (4.00-5.40); WHITE BLOOD COUNT 9.2 10^3/uL (4.0-10.0)
[2022-03-29] MEDS ORDERED: KETOROLAC 30 MG/ML 1ML VIAL IV ONE (17:20)
[2022-03-29 17:21] LABS: INR 0.94
[2022-03-29 17:23] LABS: PARTIAL THROMBOPLASTIN TIME 26.8 SECONDS (25.9-37.0)
[2022-03-29 17:30] LABS: BLOOD UREA NITROGEN 12 MG/DL (7-18); CALCIUM LEVEL 9.3 MG/DL (8.5-10.1); CARBON DIOXIDE LEVEL 22 MEQ/L (21-32); CHLORIDE LEVEL 113 MEQ/L (98-107); CREATININE FOR GFR 0.82 MG/DL (0.55-1.30); GLOMERULAR FILTRATION RATE > 60.0 (>60); GLUCOSE, FASTING 87 MG/DL (70-100); POTASSIUM SERUM 4.1 MEQ/L (3.5-5.1); SODIUM LEVEL 139 MEQ/L (136-145)
[2022-03-29 19:09] VITALS: BP 115/68
== END 2022-03-29 19:11 | disposition home or self-care (01) ==
LOC: EDBD 15:48 → M ED 15:48
DX: R51.9 Headache, unspecified (principal); F41.9 Anxiety disorder, unspecified; F32.9 Major depressive disorder, single episode, unspecified; J30.81 Allergic rhinitis due to animal (cat) (dog) hair and dander; J30.89 Other allergic rhinitis; Z79.82 Long term (current) use of aspirin; Z79.899 Other long term (current) drug therapy; Z91.040 Latex allergy status
CPT/HCPCS: 70450; 80048; 85025; 85610; 85730; 86850; 86900; 86901; 93005; 93041; 94760; 96361; 96374; 96375; 99284; J1200; J1885; J2765

== ENCOUNTER → 2022-03-31 | Outpatient (CLI) | payer OTHER ==
[2022-03-31 14:12] LABS: BASO % 0.4 % (0.0-1.0); EOS # 0.2 10^3/uL (0.0-0.5); EOS % 2.3 % (0.0-3.0); HEMOGLOBIN 12.2 g/dl (12.0-15.5); LYMPH # 1.6 10^3/uL (1.5-5.0); LYMPH % 22.8 % (24.0-44.0); MEAN CORPUSCULAR HEMOGLOBIN 31.5 pg (27.0-33.0); MEAN CORPUSCULAR VOLUME 95.6 fl (80.0-96.0); MONO # 0.5 10^3/uL (0.0-0.8); MONO % 6.8 % (2.0-8.0); NEUTROPHILS # 4.6 10^3/uL (1.5-8.5); NEUTROPHILS % 67.4 % (36.0-66.0); PLATELET COUNT, AUTOMATED 239 10^3/uL (150-450); RED BLOOD COUNT 3.87 10^6/uL (4.00-5.40); WHITE BLOOD COUNT 6.9 10^3/uL (4.0-10.0)
[2022-03-31 16:36] LABS: ALBUMIN 3.3 GM/DL (3.2-5.2); ALT/SGPT 15 U/L (12-78); BILIRUBIN,TOTAL 0.4 MG/DL (0.2-1.0); BLOOD UREA NITROGEN 8 MG/DL (7-18); CALCIUM LEVEL 9.2 MG/DL (8.5-10.1); CARBON DIOXIDE LEVEL 22 MEQ/L (21-32); CHLORIDE LEVEL 112 MEQ/L (98-107); CREATININE FOR GFR 0.92 MG/DL (0.55-1.30); GLOMERULAR FILTRATION RATE > 60.0 (>60); GLUCOSE, FASTING 98 MG/DL (70-100); POTASSIUM SERUM 4.2 MEQ/L (3.5-5.1); SODIUM LEVEL 141 MEQ/L (136-145); TOTAL PROTEIN 6.8 GM/DL (6.4-8.2)
== END ==
LOC: M ADAMS 09:50
PROVIDERS: ATTEND Psychiatry & Neurology Neurology
DX: R51.9 Headache, unspecified (principal)

== ENCOUNTER → 2022-07-21 | Outpatient (REF) | payer OTHER | LOC: M LAB REF 12:01 | PROVIDERS: ATTEND Physician Assistant | DX: B34.9 Viral infection, unspecified (principal) ==

== ENCOUNTER → 2022-08-04 | Outpatient (CLI) | payer OTHER | LOC: M RAD 10:51 | PROVIDERS: ATTEND Neurological Surgery | DX: Q28.3 Other malformations of cerebral vessels (principal); Z98.890 Other specified postprocedural states ==

== ENCOUNTER → 2022-09-04 | Outpatient (REF) | payer OTHER ==
[2022-09-04 13:06] LABS: BASO % 0.3 % (0.0-1.0); EOS # 0.7 10^3/uL (0.0-0.5); HEMATOCRIT 39.6 % (36.0-47.0); HEMOGLOBIN 12.5 g/dl (12.0-15.5); LYMPH # 2.4 10^3/uL (1.5-5.0); LYMPH % 33.4 % (24.0-44.0); MEAN CORPUSCULAR HEMOGLOBIN 30.3 pg (27.0-33.0); MEAN CORPUSCULAR HGB CONC 31.6 g/dl (32.0-36.5); MEAN CORPUSCULAR VOLUME 95.9 fl (80.0-96.0); MONO # 0.5 10^3/uL (0.0-0.8); MONO % 7.2 % (2.0-8.0); NEUTROPHILS # 3.6 10^3/uL (1.5-8.5); NEUTROPHILS % 49.1 % (36.0-66.0); PLATELET COUNT, AUTOMATED 300 10^3/uL (150-450); RED BLOOD COUNT 4.13 10^6/uL (4.00-5.40); WHITE BLOOD COUNT 7.2 10^3/uL (4.0-10.0)
== END ==
LOC: M LABDRWAD 12:38
PROVIDERS: ATTEND Neurological Surgery
DX: Q28.3 Other malformations of cerebral vessels (principal)

== ENCOUNTER → 2022-10-12 | Outpatient (CLI) | payer OTHER ==
[~2022-10-12] MED LIST changes: +PROHANCE 279.3MG/ML 15ML VIAL ONE
== END ==
LOC: M PLAIMG 09:46
PROVIDERS: ATTEND Neurological Surgery
DX: G93.89 Other specified disorders of brain (principal); J34.89 Other specified disorders of nose and nasal sinuses; Z98.890 Other specified postprocedural states; Q28.3 Other malformations of cerebral vessels

== ENCOUNTER → 2022-12-22 | Outpatient (CLI) | payer OTHER ==
[~2022-12-22] MED LIST changes: +GASTROGRAFIN SOLUTION 30ML As Ordered ONE; +ISOVUE-370 76% 100ML VIAL As Ordered ONE; -PROHANCE 279.3MG/ML 15ML VIAL ONE
== END ==
LOC: M RAD 13:35
PROVIDERS: ATTEND Physician Assistant
DX: K92.1 Melena (principal); R10.84 Generalized abdominal pain; R10.13 Epigastric pain; K59.00 Constipation, unspecified

== ENCOUNTER → 2022-12-23 | Outpatient (REF) | payer OTHER ==
[~2022-12-23] MED LIST changes: -GASTROGRAFIN SOLUTION 30ML As Ordered ONE; -ISOVUE-370 76% 100ML VIAL As Ordered ONE
[2022-12-30 21:07] LABS: CALPROTECTIN STOOL 22 ug/g (0-120); FATS NEUTRAL Normal (.); FATS TOTAL Normal (.)
== END ==
LOC: M LAB REF 17:46
PROVIDERS: ATTEND Physician Assistant
DX: K92.1 Melena (principal)

== ENCOUNTER → 2022-12-24 | Outpatient (CLI) | payer OTHER ==
[2022-12-24 09:31] LABS: BASO % 0.1 % (0.0-1.0); EOS # 0.4 10^3/uL (0.0-0.5); EOS % 5.7 % (0.0-3.0); HEMOGLOBIN 12.4 g/dl (12.0-15.5); LYMPH # 1.6 10^3/uL (1.5-5.0); LYMPH % 23.6 % (24.0-44.0); MEAN CORPUSCULAR HEMOGLOBIN 30.7 pg (27.0-33.0); MEAN CORPUSCULAR HGB CONC 32.6 g/dl (32.0-36.5); MEAN CORPUSCULAR VOLUME 94.1 fl (80.0-96.0); MONO # 0.5 10^3/uL (0.0-0.8); MONO % 6.6 % (2.0-8.0); NEUTROPHILS # 4.4 10^3/uL (1.5-8.5); NEUTROPHILS % 63.9 % (36.0-66.0); PLATELET COUNT, AUTOMATED 265 10^3/uL (150-450); RED BLOOD COUNT 4.04 10^6/uL (4.00-5.40)
[2022-12-24 09:39] LABS: ERYTHROCYTE SEDIMENTATION RATE 25 mm/hr (0-20)
[2022-12-24 09:56] LABS: LIPASE 25 U/L (12-53)
[2022-12-24 09:58] LABS: ALBUMIN 3.4 G/DL (3.2-5.2); ALKALINE PHOSPHATASE 78 U/L (46-116); ALT/SGPT 12 U/L (7.0-40); AST/SGOT 20 U/L (<34); BILIRUBIN,TOTAL 0.5 MG/DL (0.3-1.2); BLOOD UREA NITROGEN 11 MG/DL (9-23); CALCIUM LEVEL 8.9 MG/DL (8.5-10.1); CARBON DIOXIDE LEVEL 22 MMOL/L (20-31); CHLORIDE LEVEL 111 MMOL/L (98-107); CREATININE FOR GFR 0.73 MG/DL (0.55-1.30); GLOMERULAR FILTRATION RATE > 60.0 (>60); GLUCOSE, FASTING 116 MG/DL (60-100); SODIUM LEVEL 140 MMOL/L (136-145); TOTAL PROTEIN 6.6 G/DL (5.7-8.2)
[2022-12-24 10:00] LABS: FREE T4 1.09 NG/DL (0.89-1.76); THYROID STIMULATING HORMONE 1.875 uIU/ML (0.55-4.78)
== END ==
LOC: M LAB 09:01
PROVIDERS: ATTEND Physician Assistant
DX: K92.1 Melena (principal); R10.84 Generalized abdominal pain; Z87.19 Personal history of other diseases of the digestive system

== ENCOUNTER → 2023-04-14 | Outpatient (REF) | payer OTHER | LOC: M LAB REF 17:33 | PROVIDERS: ATTEND Physician Assistant Medical | DX: J02.9 Acute pharyngitis, unspecified (principal) ==

== ENCOUNTER → 2023-11-05 | Outpatient (CLI) | payer OTHER | LOC: M RAD 09:15 | PROVIDERS: ATTEND Neurological Surgery | DX: Q28.3 Other malformations of cerebral vessels (principal) ==

== ENCOUNTER 2023-12-12 08:01 | Emergency (ER) | payer OTHER ==
[~2023-12-12] VITALS: Ht 157.5 cm; Wt 91.5 kg
[2023-12-12] MEDS: IPRATROPIUM 0.5MG/ALBUTEROL 2.5MG INH SOL UD 3ML (DUONEB) NEB PRN (09:02)
[2023-12-12] MEDS: methylPREDNISolone 125MG 2ML VIAL IV ONE (09:11)
[2023-12-12] MEDS ORDERED: NORT10CA2 PO (09:12)
[2023-12-12 09:26] LABS: BASO % 0.3 % (0.0-1.0); EOS # 0.6 10^3/uL (0.0-0.5); EOS % 6.3 % (0.0-3.0); HEMATOCRIT 40.4 % (36.0-47.0); HEMOGLOBIN 13.6 g/dl (12.0-15.5); LYMPH # 1.7 10^3/uL (1.5-5.0); LYMPH % 19.7 % (24.0-44.0); MEAN CORPUSCULAR HEMOGLOBIN 30.9 pg (27.0-33.0); MEAN CORPUSCULAR HGB CONC 33.7 g/dl (32.0-36.5); MEAN CORPUSCULAR VOLUME 91.8 fl (80.0-96.0); MONO # 0.6 10^3/uL (0.0-0.8); MONO % 6.8 % (2.0-8.0); NEUTROPHILS # 5.8 10^3/uL (1.5-8.5); NEUTROPHILS % 66.8 % (36.0-66.0); PLATELET COUNT, AUTOMATED 304 10^3/uL (150-450); WHITE BLOOD COUNT 8.7 10^3/uL (4.0-10.0)
[2023-12-12 09:51] LABS: BLOOD UREA NITROGEN 8 MG/DL (9-23); CALCIUM LEVEL 8.7 MG/DL (8.5-10.1); CARBON DIOXIDE LEVEL 22 MMOL/L (20-31); CHLORIDE LEVEL 108 MMOL/L (98-107); CREATININE FOR GFR 0.71 MG/DL (0.55-1.30); GLOMERULAR FILTRATION RATE > 60.0 (>60); GLUCOSE, FASTING 93 MG/DL (60-100); POTASSIUM SERUM 4.2 MMOL/L (3.5-5.1); SODIUM LEVEL 138 MMOL/L (136-145)
[2023-12-12 11:54] VITALS: BP 125/71; TEMP 97.8; O2SAT 97
[2023-12-12] MEDS ORDERED: PRED20TA PO (11:54)
== END 2023-12-12 12:15 | disposition home or self-care (01) ==
LOC: M ED 08:01
DX: J06.9 Acute upper respiratory infection, unspecified (principal); J20.9 Acute bronchitis, unspecified; J45.909 Unspecified asthma, uncomplicated; F41.9 Anxiety disorder, unspecified; F32.A Depression, unspecified; Z91.040 Latex allergy status
CPT/HCPCS: 71046; 80048; 84702; 85025; 87486; 87581; 87633; 87798; 93041; 94640; 94760; 96374; 99284; J2930

== ENCOUNTER 2024-09-12 11:11 | Emergency (ER) | payer OTHER ==
[~2024-09-12] VITALS: Ht 157.5 cm; Wt 86.4 kg
[~2024-09-12 11:11] MED LIST changes: -CITA20TA7; +CITA20TA7 PO; +NORT10CA2 PO; +ONDA-282 PO; -ONDA4TAB6 PO; +PRED20TA PO
[2024-09-12] MEDS ORDERED: ALBU8.5H INH (11:24)
[2024-09-12] MEDS: IPRATROPIUM 0.5MG/ALBUTEROL 2.5MG INH SOL UD 3ML (DUONEB) NEB PRN (11:56)
[2024-09-12 12:20] LABS: HEMATOCRIT 39.8 % (36.0-47.0); HEMOGLOBIN 13.5 g/dl (12.0-15.5); MEAN CORPUSCULAR HEMOGLOBIN 30.8 pg (27.0-33.0); MEAN CORPUSCULAR HGB CONC 33.9 g/dl (32.0-36.5); MEAN CORPUSCULAR VOLUME 90.7 fl (80.0-96.0); PLATELET COUNT, AUTOMATED 311 10^3/uL (150-450); RED BLOOD COUNT 4.39 10^6/uL (4.00-5.40); WHITE BLOOD COUNT 8.7 10^3/uL (4.0-10.0)
[2024-09-12 12:54] LABS: BLOOD UREA NITROGEN 8 MG/DL (9-23); CALCIUM LEVEL 9.6 MG/DL (8.5-10.1); CARBON DIOXIDE LEVEL 25 MMOL/L (20-31); CHLORIDE LEVEL 108 MMOL/L (98-107); CREATININE FOR GFR 0.59 MG/DL (0.55-1.30); GLOMERULAR FILTRATION RATE > 60.0 (>60); GLUCOSE, FASTING 99 MG/DL (60-100); POTASSIUM SERUM 4.1 MMOL/L (3.5-5.1); SODIUM LEVEL 139 MMOL/L (136-145)
[2024-09-12 13:20] VITALS: O2SAT 92
[2024-09-12] MEDS: cefTRIAXone SOD 1 GM in DEXTROSE 5% (D5W) ADV/MINI-BAG 50 ML IV ONE (14:21)
[2024-09-12] MEDS: DOXYCYCLINE HYCLATE 100MG TABLET PO ONE (14:21)
[2024-09-12] MEDS ORDERED: ALBU2.5V10 INH (14:59)
[2024-09-12] MEDS ORDERED: HOME MED LIST COMPLETE! XX SCH (15:00)
[2024-09-12] MEDS: NS 1,000 ML IV ONE (15:22)
[2024-09-12] MEDS ORDERED: LEVO75TAB PO (16:41)
[2024-09-12] MEDS ORDERED: PRED20TA PO (16:41)
[2024-09-12 16:54] VITALS: BP 119/68; TEMP 98.8; O2SAT 91
== END 2024-09-12 17:00 | disposition home or self-care (01) ==
LOC: M ED 11:11
DX: J18.1 Lobar pneumonia, unspecified organism (principal); R00.0 Tachycardia, unspecified; I45.81 Long QT syndrome; F12.10 Cannabis abuse, uncomplicated; Z91.09 Other allergy status, other than to drugs and biological substances; Z91.040 Latex allergy status; Z79.51 Long term (current) use of inhaled steroids; Z79.52 Long term (current) use of systemic steroids; Z79.899 Other long term (current) drug therapy
CPT/HCPCS: 71045; 80048; 83605; 85027; 87040; 87486; 87581; 87633; 87798; 93005; 94640; 94760; 96365; 96366; 99284; J0696

== ENCOUNTER → 2025-02-05 | Outpatient (REF) | payer OTHER ==
[~2025-02-05] MED LIST changes: +ALBU2.5V10 INH; +ALBU8.5H INH; +LEVO75TAB PO
== END ==
LOC: M LAB REF 16:42
PROVIDERS: ATTEND Physician Assistant
DX: B34.9 Viral infection, unspecified (principal)

== ENCOUNTER → 2025-02-06 | Outpatient (REF) | payer OTHER ==
[2025-02-06 14:21] LABS: BASO % 0.4 % (0.0-1.0); EOS # 0.3 10^3/uL (0.0-0.5); EOS % 5.4 % (0.0-3.0); HEMATOCRIT 42.7 % (36.0-47.0); HEMOGLOBIN 13.6 g/dl (12.0-15.5); LYMPH # 2.1 10^3/uL (1.5-5.0); LYMPH % 39.7 % (24.0-44.0); MEAN CORPUSCULAR HEMOGLOBIN 30.2 pg (27.0-33.0); MEAN CORPUSCULAR HGB CONC 31.9 g/dl (32.0-36.5); MEAN CORPUSCULAR VOLUME 94.7 fl (80.0-96.0); MONO # 0.5 10^3/uL (0.0-0.8); MONO % 10.3 % (2.0-8.0); NEUTROPHILS # 2.3 10^3/uL (1.5-8.5); PLATELET COUNT, AUTOMATED 297 10^3/uL (150-450); RED BLOOD COUNT 4.51 10^6/uL (4.00-5.40); WHITE BLOOD COUNT 5.2 10^3/uL (4.0-10.0)
[2025-02-06 14:24] LABS: ALBUMIN 3.8 G/DL (3.2-5.2); ALKALINE PHOSPHATASE 103 U/L (35-104); ALT/SGPT 25 U/L (7.0-40); AST/SGOT 23 U/L (<34); BILIRUBIN,TOTAL 0.2 MG/DL (0.3-1.2); BLOOD UREA NITROGEN 11 MG/DL (9-23); CALCIUM LEVEL 8.9 MG/DL (8.5-10.1); CARBON DIOXIDE LEVEL 28 MMOL/L (20-31); CHLORIDE LEVEL 106 MMOL/L (98-107); CHOLESTEROL LEVEL 180 MG/DL (<200); CHOLESTEROL RISK RATIO 2.81 (<5); CREATININE FOR GFR 0.68 MG/DL (0.55-1.30); GLOMERULAR FILTRATION RATE > 90.0 (>60); GLUCOSE, FASTING 81 MG/DL (60-100); LDL CHOLESTEROL 100.8 MG/DL (<100); POTASSIUM SERUM 4.1 MMOL/L (3.5-5.1); SODIUM LEVEL 142 MMOL/L (136-145); THYROID STIMULATING HORMONE 0.976 uIU/ML (0.55-4.78); TOTAL PROTEIN 7.1 G/DL (5.7-8.2); TRIGLYCERIDES LEVEL 76 MG/DL (<150)
[2025-02-06 14:27] LABS: FREE T4 1.17 NG/DL (0.89-1.76); VITAMIN B12 LEVEL 692 PG/ML (211-911)
[2025-02-06 14:28] LABS: FOLATE 20.6 NG/ML (>5.4)
[2025-02-06 14:31] LABS: HEMOGLOBIN A1c 4.6 % (4.0-6.0)
== END ==
LOC: M SFHCADAM 09:06
PROVIDERS: ATTEND Physician Assistant
DX: F32.0 Major depressive disorder, single episode, mild (principal); G43.019 Migraine without aura, intractable, without status migrainosus; E66.01 Morbid (severe) obesity due to excess calories; Z68.41 Body mass index [BMI] 40.0-44.9, adult; Z13.220 Encounter for screening for lipoid disorders; Z13.1 Encounter for screening for diabetes mellitus; N92.0 Excessive and frequent menstruation with regular cycle; Q28.3 Other malformations of cerebral vessels

== ENCOUNTER 2025-03-03 01:50 | Emergency (ER) | payer OTHER ==
[~2025-03-03] VITALS: Ht 160 cm; Wt 88.8 kg
[~2025-03-03 01:50] MED LIST changes: +TOPI-256; +TOPI-257; -TOPI100T9; -TOPI25TA10
[2025-03-03 01:52] VITALS: BP 131/90; TEMP 96.4; O2SAT 100
[2025-03-03 02:27] LABS: KETONE, URINE AUTO RFX NEGATIVE (NEGATIVE); LEUKOCYTE ESTERASE UR AUTO RFX NEGATIVE (NEGATIVE); MUCUS, URINE RFX MODERATE (NEGATIVE); NITRITE, URINE AUTO RFX NEGATIVE (NEGATIVE); RBC, URINE AUTO RFX TNTC /HPF (0-3); SQUAM EPITHELIAL CELL UR AURFX 0 /HPF (0-6)
[2025-03-03 02:28] LABS: WBC, URINE AUTO RFX 32 /HPF (0-3)
== END 2025-03-03 03:05 | disposition left against medical advice (07) ==
LOC: M ED 01:50
DX: Z53.21 Procedure and treatment not carried out due to patient leaving prior to being seen by health care provider (principal)

== ENCOUNTER → 2025-03-12 | Outpatient (REF) | payer OTHER ==
[2025-03-12 17:44] LABS: APPEARANCE, URINE HAZY (CLEAR); BACTERIA, URINE AUTO NEGATIVE (NEGATIVE); BILIRUBIN, URINE AUTO NEGATIVE (NEGATIVE); BLOOD, URINE BLOOD NEGATIVE (NEGATIVE); COLOR, URINE YELLOW (YELLOW); GLUCOSE, URINE (UA) AUTO NEGATIVE (NEGATIVE); KETONE, URINE AUTO NEGATIVE (NEGATIVE); LEUKOCYTE ESTERASE, URINE AUTO NEGATIVE (NEGATIVE); MUCUS, URINE SMALL (NEGATIVE); NITRITE, URINE AUTO NEGATIVE (NEGATIVE); PROTEIN, URINE AUTO NEGATIVE (NEGATIVE); RBC, URINE AUTO 1 /HPF (0-3); SPECIFIC GRAVITY URINE AUTO 1.023 (1.002-1.035); SQUAMOUS EPITHELIAL CELL UR AU 8 /HPF (0-6); UROBILINOGEN, URINE AUTO 0.2 mg/dL (0.0-2.0); WBC, URINE AUTO 2 /HPF (0-3)
[2025-03-12 18:16] LABS: HEMATOCRIT 36.1 % (36.0-47.0); HEMOGLOBIN 11.7 g/dl (12.0-15.5); MEAN CORPUSCULAR HEMOGLOBIN 30.5 pg (27.0-33.0); MEAN CORPUSCULAR HGB CONC 32.4 g/dl (32.0-36.5); MEAN CORPUSCULAR VOLUME 94.3 fl (80.0-96.0); PLATELET COUNT, AUTOMATED 302 10^3/uL (150-450); RED BLOOD COUNT 3.83 10^6/uL (4.00-5.40); WHITE BLOOD COUNT 9.9 10^3/uL (4.0-10.0)
[2025-03-12 18:45] LABS: BLOOD UREA NITROGEN 11 MG/DL (9-23); CALCIUM LEVEL 9.3 MG/DL (8.5-10.1); CARBON DIOXIDE LEVEL 27 MMOL/L (20-31); CHLORIDE LEVEL 104 MMOL/L (98-107); CREATININE FOR GFR 0.61 MG/DL (0.55-1.30); GLOMERULAR FILTRATION RATE > 90.0 (>60); GLUCOSE, FASTING 114 MG/DL (60-100); POTASSIUM SERUM 3.9 MMOL/L (3.5-5.1); SODIUM LEVEL 140 MMOL/L (136-145)
== END ==
LOC: M SFHCADAM 14:30
PROVIDERS: ATTEND Physician Assistant
DX: R31.0 Gross hematuria (principal)

== ENCOUNTER → 2025-05-20 | Outpatient (CLI) | payer OTHER | LOC: M WHC 07:43 | PROVIDERS: ATTEND Physician Assistant | DX: R31.0 Gross hematuria (principal) ==

== ENCOUNTER → 2025-06-22 | Outpatient (REF) | payer OTHER ==
[2025-06-22 18:05] LABS: APPEARANCE, URINE HAZY (CLEAR); BACTERIA, URINE AUTO NEGATIVE (NEGATIVE); BILIRUBIN, URINE AUTO NEGATIVE (NEGATIVE); BLOOD, URINE BLOOD 2+ (NEGATIVE); GLUCOSE, URINE (UA) AUTO NEGATIVE (NEGATIVE); KETONE, URINE AUTO NEGATIVE (NEGATIVE); LEUKOCYTE ESTERASE, URINE AUTO NEGATIVE (NEGATIVE); MUCUS, URINE SMALL (NEGATIVE); NITRITE, URINE AUTO NEGATIVE (NEGATIVE); PROTEIN, URINE AUTO NEGATIVE (NEGATIVE); RBC, URINE AUTO 3 /HPF (0-3); SPECIFIC GRAVITY URINE AUTO 1.020 (1.002-1.035); SQUAMOUS EPITHELIAL CELL UR AU 3 /HPF (0-6); UROBILINOGEN, URINE AUTO 0.2 mg/dL (0.0-2.0); WBC, URINE AUTO 1 /HPF (0-3)
== END ==
LOC: M SMT 16:55
PROVIDERS: ATTEND Nurse Practitioner Family
DX: R31.9 Hematuria, unspecified (principal)

== ENCOUNTER → 2025-07-07 | Outpatient (CLI) | payer OTHER | LOC: M PLAIMG 14:53 | PROVIDERS: ATTEND Nurse Practitioner Family | DX: R10.9 Unspecified abdominal pain (principal) ==